=== PATIENT | female | born 1940 | race Caucasian/White ===

== ENCOUNTER 2021-08-08 13:48 | Day surgery (SDC) | payer MEDICARE, BC ==
[2021-08-04 15:36] LABS: BASOPHILS % (AUTO) 0.9 % (0-1); EOSINOPHILS # (AUTO) 0.1 X10'3 (0-0.9); EOSINOPHILS % (AUTO) 1.6 % (0-6); HEMATOCRIT 41.1 % (35.0-45.0); HEMOGLOBIN 13.5 g/dl (12.0-16.0); LYMPHOCYTES # (AUTO) 1.4 X10'3 (1.1-4.8); LYMPHOCYTES % (AUTO) 29.5 % (21-51); MEAN CORPUSCULAR HEMOGLOBIN 32.9 PG (27.0-31.0); MEAN CORPUSCULAR HGB CONC 32.9 g/dL (33.0-36.5); MEAN PLATELET VOLUME 8.7 FL (7.4-10.4); MONOCYTES # (AUTO) 0.4 X10'3 (0-0.9); MONOCYTES % (AUTO) 8.4 % (2-12); NEUTROPHILS # (AUTO) 2.8 X10'3 (1.8-7.7); NEUTROPHILS % (AUTO) 59.6 % (42-75); PLATELET COUNT 238 X10'3 (140-440); RED BLOOD COUNT 4.12 X10'6 (4.20-5.60); RED CELL DISTRIBUTION WIDTH 14.2 % (11.5-14.5); WHITE BLOOD COUNT 4.7 X10'3 (4.5-11.0)
[2021-08-04 15:43] LABS: ALBUMIN 3.3 G/DL (3.4-5.0); ANION GAP 7 (8-16); BLOOD UREA NITROGEN 16 MG/DL (7-18); BUN/CREATININE RATIO 20.8 (6.6-38.0); CALCIUM 8.7 MG/DL (8.5-10.1); CHLORIDE 105 MMOL/L (99-107); CREATININE 0.77 MG/DL (0.40-0.90); GLUCOSE 85 MG/DL (70-104); POTASSIUM 4.1 MMOL/L (3.5-5.1); SODIUM 140 MMOL/L (135-145); TOTAL CARBON DIOXIDE 27.6 MMOL/L (24-32); eGFR 72 ML/MIN
[2021-08-04 15:45] LABS: APTT 37 SECONDS (22-32)
[~2021-08-08] VITALS: Ht 154.9 cm; Wt 84.2 kg
[2021-08-08] VITALS (7 sets, daily range): BP systolic 112–149; BP diastolic 75–86
[~2021-08-08 13:48] MED LIST: ALEN70TA80 PO; CALC-97 PO; FLUO-167 PO; ROPIVAcaine 0.5% (5mg/ml) 30ml vial ONE; SOTA120T22 PO; WARF3TAB56 PO
[2021-08-08] MEDS ORDERED: LORazepam 0.5 MG tablet PO PRN (14:05)
[2021-08-08] MEDS ORDERED: normal saline 1,000 ML IV SCH (14:05)
[2021-08-08] MEDS ORDERED: diphenhydrAMINE 25mg capsule PO PRN (14:05)
[2021-08-08] MEDS ORDERED: ZOLE5INF7 IV (14:14)
[2021-08-08] MEDS ORDERED: FURO20TA4 PO (14:14)
[2021-08-08] MEDS ORDERED: ERGO50CA PO (14:15)
[2021-08-08] MEDS ORDERED: nitroGLYCERIN-Tridil 50MG/D5W 250 ML IV ONE (16:25)
[2021-08-08] MEDS ORDERED: verapamil 2.5 mg/ml inj IV ONE (16:25)
[2021-08-08] MEDS ORDERED: midazolam 1 mg/ML 2ml injection ONE (16:26)
[2021-08-08] MEDS ORDERED: fentaNYL/PF 50MCG/1 ML 2ML syringe ONE (16:26)
[2021-08-08] MEDS ORDERED: iohexol 350 MG/1 ML 200ml bottle ONE (16:26)
[2021-08-08] MEDS ORDERED: heparin 1,000unit/ml 10ml vial 10 ML ONE ×2 (16:34→17:14)
[2021-08-08] MEDS ORDERED: LIDOcaine 1% 30ml preserv. free vial ONE (16:34)
[2021-08-08 17:31] LABS: ISTAT HGB ART 12.2 g/dl (12.0-16.0); ISTAT Hct ART 36 %PCV (35-48); ISTAT O2 SATURATION ARTERIAL 97 % (95-98); ISTAT SOURCE ART
[2021-08-08] MEDS ORDERED: normal saline 1000ml 1,000 ML IV SCH (18:20)
[2021-08-08] MEDS ORDERED: HYDROcodone/acetaminophen 10/325mg tab PO PRN (18:20)
[2021-08-08] MEDS ORDERED: HYDROcodone/acetaminophen 5mg/325mg tablet PO PRN (18:20)
[2021-08-09 07:37] LABS: ISTAT Hct MIX 40 %PCV (35-48); ISTAT O2 SATURATION MIX VENOUS 63 % (60-80); ISTAT SOURCE VEN
== END 2021-08-08 19:54 | disposition home or self-care (01) ==
LOC: SSTAY O 13:48
PROVIDERS: ATTEND Internal Medicine Interventional Cardiology
DX: I08.2 Rheumatic disorders of both aortic and tricuspid valves (principal); I10 Essential (primary) hypertension; I48.91 Unspecified atrial fibrillation; E78.5 Hyperlipidemia, unspecified; I48.0 Paroxysmal atrial fibrillation; M19.90 Unspecified osteoarthritis, unspecified site; I27.20 Pulmonary hypertension, unspecified; I65.23 Occlusion and stenosis of bilateral carotid arteries; Z87.891 Personal history of nicotine dependence; Z95.0 Presence of cardiac pacemaker; Z79.899 Other long term (current) drug therapy
CPT/HCPCS: 36415; 80048; 82803; 85014; 85025; 85610; 85730; 93005; 93456; 99152; 99153; C1751; C1769; C1894; J1644; J2250; J3010; J3490; J7030; Q0163; A4620; A5120; J2795; Q9967

== ENCOUNTER 2021-09-16 10:00 | Outpatient (CLI) | payer MEDICARE, BC ==
[~2021-09-16 10:00] MED LIST changes: -ALEN70TA80 PO; +ERGO50CA PO; +FURO20TA4 PO; -ROPIVAcaine 0.5% (5mg/ml) 30ml vial ONE; +ZOLE5INF7 IV
[2021-09-16 10:31] LABS: BASOPHILS # (AUTO) 0.1 X10'3 (0-0.2); BASOPHILS % (AUTO) 1.1 % (0-1); EOSINOPHILS # (AUTO) 0.1 X10'3 (0-0.9); MONOCYTES # (AUTO) 0.4 X10'3 (0-0.9); NEUTROPHILS # (AUTO) 3.4 X10'3 (1.8-7.7); WHITE BLOOD COUNT 4.9 X10'3 (4.5-11.0)
[2021-09-16 10:33] LABS: EOSINOPHILS % (AUTO) 1.6 % (0-6); HEMOGLOBIN 13.9 g/dl (12.0-16.0); LYMPHOCYTES % (AUTO) 20.2 % (21-51); MEAN CORPUSCULAR HEMOGLOBIN 33.3 PG (27.0-31.0); MEAN CORPUSCULAR HGB CONC 33.1 g/dL (33.0-36.5); MEAN CORPUSCULAR VOLUME 100.7 FL (78-98); MEAN PLATELET VOLUME 8.3 FL (7.4-10.4); MONOCYTES % (AUTO) 8.8 % (2-12); NEUTROPHILS % (AUTO) 68.3 % (42-75); PLATELET COUNT 248 X10'3 (140-440); RED BLOOD COUNT 4.17 X10'6 (4.20-5.60)
[2021-09-16 10:40] LABS: APTT 41 SECONDS (22-32)
[2021-09-16 10:41] LABS: ALANINE AMINOTRANSFERASE 19 U/L (12-78); ALBUMIN/GLOBULIN RATIO 0.7 (1.1-1.5); ALKALINE PHOSPHATASE 102 IU/L (46-116); ANION GAP 8 (8-16); ASPARTATE AMINO TRANSFERASE 23 U/L (10-37); BILIRUBIN,TOTAL 0.6 MG/DL (0.1-1.0); BLOOD UREA NITROGEN 12 MG/DL (7-18); BUN/CREATININE RATIO 12.6 (6.6-38.0); CALCIUM 8.3 MG/DL (8.5-10.1); CHLORIDE 106 MMOL/L (99-107); CREATININE 0.95 MG/DL (0.40-0.90); GLUCOSE 126 MG/DL (70-104); POTASSIUM 4.1 MMOL/L (3.5-5.1); SODIUM 141 MMOL/L (135-145); TOTAL CARBON DIOXIDE 26.7 MMOL/L (24-32); TOTAL PROTEIN 7.6 G/DL (6.4-8.2); eGFR 56 ML/MIN
[2021-09-16] MEDS ORDERED: iohexol 350 MG/1 ML 200ml bottle ONE (10:50)
== END 2021-09-16 23:59 | disposition home or self-care (01) ==
LOC: RAD 10:00
PROVIDERS: ATTEND Internal Medicine Cardiovascular Disease
DX: Z01.818 Encounter for other preprocedural examination (principal); R94.2 Abnormal results of pulmonary function studies; J43.9 Emphysema, unspecified; I51.7 Cardiomegaly; Z95.0 Presence of cardiac pacemaker; Z90.49 Acquired absence of other specified parts of digestive tract; Z79.899 Other long term (current) drug therapy; Z87.891 Personal history of nicotine dependence
CPT/HCPCS: 36415; 71046; 71275; 74174; 80053; 85025; 85610; 85730; 94010; 94727; 94729; J3490; Q9967

== ENCOUNTER 2023-04-24 11:24 | Day surgery (SDC) | payer MEDICARE, BC ==
[2023-04-20 16:39] LABS: EOSINOPHILS # (AUTO) 0.1 X10'3 (0-0.9); MEAN CORPUSCULAR HEMOGLOBIN 34.7 PG (27.0-31.0)
[2023-04-20 16:41] LABS: BASOPHILS % (AUTO) 0.8 % (0-1); EOSINOPHILS % (AUTO) 2.3 % (0-6); HEMATOCRIT 41.2 % (35.0-45.0); HEMOGLOBIN 13.9 g/dl (12.0-16.0); LYMPHOCYTES # (AUTO) 0.9 X10'3 (1.1-4.8); LYMPHOCYTES % (AUTO) 17.3 % (21-51); MEAN CORPUSCULAR HGB CONC 33.7 g/dL (33.0-36.5); MEAN PLATELET VOLUME 8.5 FL (7.4-10.4); MONOCYTES # (AUTO) 0.5 X10'3 (0-0.9); MONOCYTES % (AUTO) 8.7 % (2-12); NEUTROPHILS # (AUTO) 3.8 X10'3 (1.8-7.7); NEUTROPHILS % (AUTO) 70.9 % (42-75); PLATELET COUNT 188 X10'3 (140-440); RED BLOOD COUNT 3.99 X10'6 (4.20-5.60); RED CELL DISTRIBUTION WIDTH 14.7 % (11.5-14.5); WHITE BLOOD COUNT 5.3 X10'3 (4.5-11.0)
[2023-04-20 16:47] LABS: APTT 36 SECONDS (22-32); INR 2.5 INR; PROTHROMBIN TIME 25.6 SECONDS (9.0-12.0)
[2023-04-20 16:49] LABS: ALBUMIN 3.2 G/DL (3.4-5.0); ANION GAP 8 (8-16); BLOOD UREA NITROGEN 12 MG/DL (7-18); BUN/CREATININE RATIO 12.9 (10.0-20.0); CALCIUM 9.1 MG/DL (8.5-10.1); CHLORIDE 104 MMOL/L (99-107); CREATININE 0.93 MG/DL (0.40-0.90); GLUCOSE 90 MG/DL (70-104); POTASSIUM 3.6 MMOL/L (3.5-5.1); SODIUM 140 MMOL/L (135-145); TOTAL CARBON DIOXIDE 27.6 MMOL/L (24-32); eGFR 58 ML/MIN
[~2023-04-24] VITALS: Ht 170.2 cm; Wt 83.9 kg
[2023-04-24] VITALS (12 sets, daily range): BP systolic 116–179; BP diastolic 69–129; PULSE 82–102; RESP 16; TEMP 98.1; O2SAT 92–99
[~2023-04-24 11:24] MED LIST changes: -ERGO50CA PO; +FURO-150 PO; -FURO20TA4 PO; +WARF4TAB69 PO
[2023-04-24] MEDS: normal saline 1000ml 1,000 ML IV SCH (12:00)
[2023-04-24] MEDS: MIDAZolam 1mg/ml 10ml vial IV ONE (12:45)
[2023-04-24] MEDS: fentaNYL/PF 50MCG/1 ML 2ML syringe IV ONE (12:48)
[2023-04-24] MEDS ORDERED: LEVO5TAB13 PO (13:07)
[2023-04-24] MEDS ORDERED: CYAN-34 PO (13:07)
[2023-04-24] MEDS ORDERED: LISI40TA13 PO (13:07)
[2023-04-24] MEDS ORDERED: BIOT5000 PO (13:07)
== END 2023-04-24 15:20 | disposition home or self-care (01) ==
LOC: SSTAY O 11:24
PROVIDERS: ATTEND Student in an Organized Health Care Education/Training Program
DX: I48.0 Paroxysmal atrial fibrillation (principal); I08.3 Combined rheumatic disorders of mitral, aortic and tricuspid valves; I65.29 Occlusion and stenosis of unspecified carotid artery; I10 Essential (primary) hypertension; E78.5 Hyperlipidemia, unspecified; M19.90 Unspecified osteoarthritis, unspecified site; I27.20 Pulmonary hypertension, unspecified; I49.5 Sick sinus syndrome; Z95.0 Presence of cardiac pacemaker; Z79.01 Long term (current) use of anticoagulants; Z79.899 Other long term (current) drug therapy; Z87.891 Personal history of nicotine dependence
CPT/HCPCS: 36415; 80048; 85025; 85610; 85730; 92960; J2250; J3010; J7030; A4620

== ENCOUNTER 2023-07-07 08:41 | Emergency (ER) | payer MEDICARE, BC ==
[~2023-07-07] VITALS: Ht 154.9 cm; Wt 78.0 kg
[~2023-07-07 08:41] MED LIST changes: +BIOT5000 PO; +CYAN-34 PO; +LEVO5TAB13 PO; +LISI40TA13 PO; -ZOLE5INF7 IV
[2023-07-07 08:56] VITALS: BP 153/63; PULSE 60; RESP 20; TEMP 97.2; O2SAT 95
== END 2023-07-07 11:35 | disposition home or self-care (01) ==
LOC: ER 08:41
DX: K13.79 Other lesions of oral mucosa (principal); I48.91 Unspecified atrial fibrillation; I25.10 Atherosclerotic heart disease of native coronary artery without angina pectoris; Z90.49 Acquired absence of other specified parts of digestive tract; Z95.0 Presence of cardiac pacemaker
CPT/HCPCS: 99282

== ENCOUNTER 2023-09-13 13:36 | Inpatient (IN) | payer MEDICARE, BC ==
[~2023-09-13] VITALS: Ht 165.1 cm; Wt 83.1 kg
[2023-09-13 14:15] LABS: BASOPHILS # (AUTO) 0.1 X10'3 (0-0.2); BASOPHILS % (AUTO) 1.1 % (0-1); EOSINOPHILS % (AUTO) 0.9 % (0-6); HEMATOCRIT 41.1 % (35.0-45.0); HEMOGLOBIN 13.5 g/dl (12.0-16.0); LYMPHOCYTES # (AUTO) 0.7 X10'3 (1.1-4.8); LYMPHOCYTES % (AUTO) 12.8 % (21-51); MEAN CORPUSCULAR HEMOGLOBIN 35.4 PG (27.0-31.0); MEAN CORPUSCULAR HGB CONC 32.7 g/dL (33.0-36.5); MEAN CORPUSCULAR VOLUME 108.3 FL (78-98); MONOCYTES # (AUTO) 0.6 X10'3 (0-0.9); MONOCYTES % (AUTO) 9.6 % (2-12); NEUTROPHILS # (AUTO) 4.3 X10'3 (1.8-7.7); NEUTROPHILS % (AUTO) 75.6 % (42-75); PLATELET COUNT 206 X10'3 (140-440); RED CELL DISTRIBUTION WIDTH 15.7 % (11.5-14.5); WHITE BLOOD COUNT 5.7 X10'3 (4.5-11.0)
[2023-09-13 14:25] LABS: ALANINE AMINOTRANSFERASE 26 U/L (12-78); ALBUMIN 3.1 G/DL (3.4-5.0); ALBUMIN/GLOBULIN RATIO 0.6 (1.1-1.5); ALKALINE PHOSPHATASE 119 IU/L (46-116); ANION GAP 11 (8-16); BILIRUBIN,TOTAL 1.7 MG/DL (0.1-1.0); BLOOD UREA NITROGEN 18 MG/DL (7-18); BUN/CREATININE RATIO 14.1 (10.0-20.0); CALCIUM 9.1 MG/DL (8.5-10.1); CHLORIDE 103 MMOL/L (99-107); CREATININE 1.28 MG/DL (0.40-0.90); GLUCOSE 96 MG/DL (70-104); SODIUM 140 MMOL/L (135-145); TOTAL CARBON DIOXIDE 26.1 MMOL/L (24-32); eCRCL 25 ML/MIN; eGFR 40 ML/MIN
[2023-09-13 14:31] LABS: PRO BRAIN NATRIURETIC PEPTIDE 11009 PG/ML (0-450)
[2023-09-13 14:32] LABS: ASPARTATE AMINO TRANSFERASE 34 U/L (10-37); POTASSIUM 3.9 MMOL/L (3.5-5.1)
[2023-09-13] MEDS ORDERED: LISI40TA13 PO (15:41)
[2023-09-13] MEDS ORDERED: HYDR25TA5 PO (15:41)
[2023-09-13] MEDS ORDERED: METO200T3 PO (15:41)
[2023-09-13] MEDS: metoprolol tartrate 50mg tablet PO STA (15:56)
[2023-09-13] MEDS: HYDROchlorothiazide 25mg tablet PO STA (15:56)
[2023-09-13] MEDS: lisinopril 20mg tablet PO STA (15:57)
[2023-09-13] MEDS: metoprolol tartrate 1mg/ml inj IV STA (15:57)
[2023-09-13] MEDS: hydrALAZINE 20mg/ml inj. IV SCH (19:32)
[2023-09-13] MEDS: metoprolol tartrate 50mg tablet PO SCH (19:32)
[2023-09-13] MEDS: digoxin 250mcg/ml 2ml ampule IV ONE (19:33)
[2023-09-13] MEDS ORDERED: acetaminophen 650mg rectal suppository RC PRN (19:50)
[2023-09-13] MEDS ORDERED: morphine 2 MG/ML inj. syringe IV PRN ×2 (19:50)
[2023-09-13] MEDS ORDERED: magnesium 2GM in 50ml NS 50 ML IV PRN (19:50)
[2023-09-13] MEDS ORDERED: ondansetron/PF 4mg/2ml inj IV PRN (19:50)
[2023-09-13] MEDS ORDERED: potassium Cl 40MEQ/1/2NS 520ml 520 ML IV PRN (19:50)
[2023-09-13] MEDS ORDERED: magnesium 4gm in 100ml NS 100 ML IV PRN (19:50)
[2023-09-13] MEDS ORDERED: ondansetron 4mg rapidly disintigrating tab PO PRN (19:50)
[2023-09-13] MEDS ORDERED: bisacodyl 10mg suppository rectal RC PRN (19:50)
[2023-09-13] MEDS ORDERED: magnesium hydroxide 30ml (MOM) UD suspension PO PRN (19:50)
[2023-09-13] MEDS ORDERED: acetaminophen 325mg tablet PO PRN ×2 (19:50)
[2023-09-13] MEDS ORDERED: magnesium Cl slow-release 64mg tablet PO PRN (19:50)
[2023-09-13] MEDS ORDERED: potassium Cl 20 mEq SR tablet PO PRN ×2 (19:50)
[2023-09-13] MEDS ORDERED: mag hydrox/Alum hydrox/simeth 30ml oral suspension PO PRN (19:50)
[2023-09-13] MEDS ORDERED: HYDROcodone/acetaminophen 5mg/325mg tablet PO PRN (19:50)
[2023-09-13] MEDS: docusate sod 100mg capsule PO SCH (20:00)
[2023-09-13] MEDS: K and/or MAG REPLACEMENT MC SCH (20:00)
[2023-09-13 20:42] LABS: MAGNESIUM 1.8 MG/DL (1.5-2.4); PHOSPHORUS 3.6 MG/DL (2.3-4.5); POTASSIUM 3.3 MMOL/L (3.5-5.1)
[2023-09-13 20:43] LABS: APTT 44 SECONDS (22-32); HEMOGLOBIN A1C 5.3 % (4.5-6.2); PROTHROMBIN TIME 54.2 SECONDS (9.0-12.0)
[2023-09-13 21:01] LABS: INR 5.9 INR
[2023-09-13 21:51] LABS: BILIRUBIN,URINE NEGATIVE (Neg); CLARITY,URINE CLOUDY (Clear); COLOR,URINE YELLOW (Yellow); GLUCOSE, URINE NEGATIVE (Neg); KETONES,URINE NEGATIVE (Neg); LEUKOCYTE ESTERASE ,URINE LARGE (Neg); NITRITES, URINE NEGATIVE (Neg); OCCULT BLOOD,URINE TRACE-INTACT (Neg); PROTEIN,URINE NEGATIVE (Neg); UROBILINOGEN,URINE 0.2 E.U/dL (0.2-1.0)
[2023-09-13] MEDS: normal saline 1000ml 1,000 ML IV SCH (21:53)
[2023-09-13 21:57] LABS: UA COLLECTION TYPE NON-SPECIFIED
[2023-09-13 21:59] LABS: SQUAMOUS EPITHELIAL CELL,UR MANY /LPF (FEW)
[2023-09-13 22:00] LABS: TRANSITIONAL EPI CELLS,URINE FEW /HPF
[2023-09-13 22:02] LABS: BACTERIA,URINE 1+ /HPF (Neg); WBC,URINE TNTC /HPF (0-4)
[2023-09-13 23:00] VITALS: BP 158/98; PULSE 125; RESP 20; TEMP 98.2; O2SAT 94
[2023-09-14] VITALS (8 sets, daily range): BP systolic 118–165; BP diastolic 60–98; PULSE 71–117; RESP 12–20; TEMP 97–98; O2SAT 96–98
[2023-09-14] MEDS: digoxin 250mcg/ml 2ml ampule IV ONE ×2 (04:40→10:59)
[2023-09-14 07:25] LABS: BASOPHILS # (AUTO) 0.1 X10'3 (0-0.2); EOSINOPHILS # (AUTO) 0.1 X10'3 (0-0.9); EOSINOPHILS % (AUTO) 0.9 % (0-6); HEMATOCRIT 37.6 % (35.0-45.0); HEMOGLOBIN 12.6 g/dl (12.0-16.0); LYMPHOCYTES # (AUTO) 0.7 X10'3 (1.1-4.8); LYMPHOCYTES % (AUTO) 13.2 % (21-51); MEAN CORPUSCULAR HEMOGLOBIN 35.8 PG (27.0-31.0); MEAN CORPUSCULAR HGB CONC 33.6 g/dL (33.0-36.5); MEAN CORPUSCULAR VOLUME 106.5 FL (78-98); MEAN PLATELET VOLUME 8.5 FL (7.4-10.4); MONOCYTES # (AUTO) 0.5 X10'3 (0-0.9); MONOCYTES % (AUTO) 8.5 % (2-12); NEUTROPHILS # (AUTO) 4.3 X10'3 (1.8-7.7); NEUTROPHILS % (AUTO) 76.4 % (42-75); PLATELET COUNT 174 X10'3 (140-440); RED BLOOD COUNT 3.53 X10'6 (4.20-5.60); RED CELL DISTRIBUTION WIDTH 15.1 % (11.5-14.5); WHITE BLOOD COUNT 5.7 X10'3 (4.5-11.0)
[2023-09-14 07:53] LABS: ALANINE AMINOTRANSFERASE 22 U/L (12-78); ALBUMIN 2.9 G/DL (3.4-5.0); ALBUMIN/GLOBULIN RATIO 0.7 (1.1-1.5); ALKALINE PHOSPHATASE 106 IU/L (46-116); ANION GAP 10 (8-16); ASPARTATE AMINO TRANSFERASE 23 U/L (10-37); BILIRUBIN,TOTAL 1.5 MG/DL (0.1-1.0); BLOOD UREA NITROGEN 19 MG/DL (7-18); BUN/CREATININE RATIO 17.4 (10.0-20.0); CALCIUM 8.9 MG/DL (8.5-10.1); CHLORIDE 104 MMOL/L (99-107); CHOL/HDL RATIO 2.2 (0.00-4.99); CHOLESTEROL 82 MG/DL (0-200); CREATININE 1.09 MG/DL (0.40-0.90); GLUCOSE 94 MG/DL (70-104); HDL CHOLESTEROL 38 MG/DL (35-60); LDL CHOLESTEROL 39 MG/DL (50-100); MAGNESIUM 1.8 MG/DL (1.5-2.4); PHOSPHORUS 3.3 MG/DL (2.3-4.5); POTASSIUM 3.5 MMOL/L (3.5-5.1); SODIUM 139 MMOL/L (135-145); TOTAL PROTEIN 7.2 G/DL (6.4-8.2); TRIGLYCERIDES 66 MG/DL (20-135); eCRCL 29 ML/MIN; eGFR 48 ML/MIN
[2023-09-14 07:57] LABS: PROTHROMBIN TIME 46.1 SECONDS (9.0-12.0)
[2023-09-14 08:05] LABS: INR 4.8 INR
[2023-09-14] MEDS: HYDROcodone/acetaminophen 10/325mg tab PO PRN (08:46)
[2023-09-14] MEDS: FLUoxetine 20mg capsule PO SCH (08:47)
[2023-09-14] MEDS: metoprolol succinate 25mg (24-HOUR) SR. Tablet PO SCH (08:47)
[2023-09-14] MEDS: HYDROchlorothiazide 25mg tablet PO SCH (08:50)
[2023-09-14] MEDS: furosemide 20MG tablet PO SCH (08:50)
[2023-09-14] MEDS: calcium carbonate/vitamin D3 tablet PO SCH (08:50)
[2023-09-14] MEDS: loratadine 10mg tablet PO SCH (08:50)
[2023-09-14] MEDS: lisinopril 10 MG tablet PO SCH (08:52)
[2023-09-14] MEDS ORDERED: warfarin 3mg tablet PO SCH (21:00)
[2023-09-14] MEDS: hydrOXYzine 25 MG tablet PO PRN (21:37)
[2023-09-15 02:00] VITALS: BP 125/87; PULSE 78; RESP 20; TEMP 98.3; O2SAT 100
[2023-09-15 06:30] VITALS: BP 141/67; PULSE 78; RESP 16; TEMP 97.3; O2SAT 94
[2023-09-15 07:10] LABS: BASOPHILS % (AUTO) 0.7 % (0-1); EOSINOPHILS # (AUTO) 0.1 X10'3 (0-0.9); EOSINOPHILS % (AUTO) 3.3 % (0-6); HEMATOCRIT 35.5 % (35.0-45.0); HEMOGLOBIN 11.9 g/dl (12.0-16.0); LYMPHOCYTES # (AUTO) 0.8 X10'3 (1.1-4.8); LYMPHOCYTES % (AUTO) 18.1 % (21-51); MEAN CORPUSCULAR HEMOGLOBIN 35.9 PG (27.0-31.0); MEAN CORPUSCULAR HGB CONC 33.4 g/dL (33.0-36.5); MEAN CORPUSCULAR VOLUME 107.3 FL (78-98); MEAN PLATELET VOLUME 8.7 FL (7.4-10.4); MONOCYTES # (AUTO) 0.4 X10'3 (0-0.9); MONOCYTES % (AUTO) 8.9 % (2-12); NEUTROPHILS # (AUTO) 3.2 X10'3 (1.8-7.7); PLATELET COUNT 173 X10'3 (140-440); RED BLOOD COUNT 3.31 X10'6 (4.20-5.60); WHITE BLOOD COUNT 4.6 X10'3 (4.5-11.0)
[2023-09-15 07:19] LABS: PROTHROMBIN TIME 34.4 SECONDS (9.0-12.0)
[2023-09-15 07:26] LABS: ALANINE AMINOTRANSFERASE 20 U/L (12-78); ALBUMIN 2.6 G/DL (3.4-5.0); ALBUMIN/GLOBULIN RATIO 0.6 (1.1-1.5); ALKALINE PHOSPHATASE 95 IU/L (46-116); ANION GAP 11 (8-16); ASPARTATE AMINO TRANSFERASE 25 U/L (10-37); BILIRUBIN,TOTAL 1.3 MG/DL (0.1-1.0); BLOOD UREA NITROGEN 22 MG/DL (7-18); BUN/CREATININE RATIO 20.2 (10.0-20.0); CALCIUM 9.2 MG/DL (8.5-10.1); CHLORIDE 103 MMOL/L (99-107); CREATININE 1.09 MG/DL (0.40-0.90); GLUCOSE 85 MG/DL (70-104); MAGNESIUM 1.9 MG/DL (1.5-2.4); PHOSPHORUS 4.1 MG/DL (2.3-4.5); POTASSIUM 3.7 MMOL/L (3.5-5.1); SODIUM 139 MMOL/L (135-145); TOTAL CARBON DIOXIDE 25.4 MMOL/L (24-32); TOTAL PROTEIN 6.7 G/DL (6.4-8.2); eCRCL 35 ML/MIN; eGFR 48 ML/MIN
[2023-09-15 07:42] LABS: INR 3.5 INR
[2023-09-15 08:00] VITALS: RESP 16; O2SAT 94
[2023-09-15 09:55] VITALS: BP 132/83; PULSE 76
[2023-09-15 11:00] VITALS: BP 100/58; PULSE 79; RESP 18; TEMP 97.2; O2SAT 95
[2023-09-15 11:08] VITALS: BP_SYST 141; PULSE 94
[2023-09-15] MEDS ORDERED: LISI40TA13 PO (11:30)
[2023-09-15] MEDS ORDERED: warfarin 4mg tablet PO SCH (21:00)
== END 2023-09-15 16:46 | disposition home or self-care (01) | DRG 308 ==
LOC: ER 13:36 → ED HOLD 19:49 → UNDOADMIN 19:49 → ED HOLD 19:59 → EDBEDREQ 22:06 → ED HOLD 23:00 → PCU 3S 23:00
PROVIDERS: ADMIT Internal Medicine Pulmonary Disease; ATTEND Internal Medicine
DX: I48.91 Unspecified atrial fibrillation (principal); N17.0 Acute kidney failure with tubular necrosis; I16.1 Hypertensive emergency; R74.01 Elevation of levels of liver transaminase levels; F32.A Depression, unspecified; G47.33 Obstructive sleep apnea (adult) (pediatric); I10 Essential (primary) hypertension; Z79.899 Other long term (current) drug therapy; Z90.49 Acquired absence of other specified parts of digestive tract; Z95.0 Presence of cardiac pacemaker
CPT/HCPCS: 36415; 71045; 80053; 80061; 81001; 83036; 83735; 83880; 84100; 84132; 84484; 85025; 85610; 85730; 87081; 93005; 97161; 97530; 99285; G0378; J0360; J1160; J3490; J7030; Q0177

== ENCOUNTER 2023-10-08 15:40 | Emergency (ER) | payer MEDICARE, BC ==
[~2023-10-08] VITALS: Ht 154.9 cm; Wt 82.8 kg
[~2023-10-08 15:40] MED LIST changes: -CYAN-34 PO; +METO200T3 PO; -SOTA120T22 PO
[2023-10-08 16:05] VITALS: TEMP 97.5
[2023-10-08 16:40] VITALS: BP 147/90; PULSE 60; RESP 18; O2SAT 97
[2023-10-08 17:00] LABS: EOSINOPHILS # (AUTO) 0.1 X10'3 (0-0.9); HEMOGLOBIN 10.8 g/dl (12.0-16.0)
[2023-10-08 17:02] LABS: BASOPHILS % (AUTO) 0.9 % (0-1); EOSINOPHILS % (AUTO) 1.1 % (0-6); HEMATOCRIT 32.8 % (35.0-45.0); LYMPHOCYTES # (AUTO) 0.7 X10'3 (1.1-4.8); LYMPHOCYTES % (AUTO) 12.9 % (21-51); MEAN CORPUSCULAR HEMOGLOBIN 35.2 PG (27.0-31.0); MEAN CORPUSCULAR HGB CONC 32.9 g/dL (33.0-36.5); MEAN CORPUSCULAR VOLUME 107.2 FL (78-98); MEAN PLATELET VOLUME 8.2 FL (7.4-10.4); MONOCYTES # (AUTO) 0.5 X10'3 (0-0.9); MONOCYTES % (AUTO) 9.3 % (2-12); NEUTROPHILS # (AUTO) 4.3 X10'3 (1.8-7.7); NEUTROPHILS % (AUTO) 75.8 % (42-75); PLATELET COUNT 180 X10'3 (140-440); RED BLOOD COUNT 3.06 X10'6 (4.20-5.60); RED CELL DISTRIBUTION WIDTH 14.5 % (11.5-14.5); WHITE BLOOD COUNT 5.6 X10'3 (4.5-11.0)
[2023-10-08 17:03] LABS: ALBUMIN 2.9 G/DL (3.4-5.0); ANION GAP 9 (8-16); BLOOD UREA NITROGEN 21 MG/DL (7-18); BUN/CREATININE RATIO 13.9 (10.0-20.0); CALCIUM 8.3 MG/DL (8.5-10.1); CHLORIDE 105 MMOL/L (99-107); CREATININE 1.51 MG/DL (0.40-0.90); GLUCOSE 102 MG/DL (70-104); POTASSIUM 3.9 MMOL/L (3.5-5.1); SODIUM 141 MMOL/L (135-145); TOTAL CARBON DIOXIDE 27.2 MMOL/L (24-32); eCRCL 21 ML/MIN; eGFR 33 ML/MIN
[2023-10-08 17:12] LABS: APTT 45 SECONDS (22-32); PROTHROMBIN TIME 41.3 SECONDS (9.0-12.0)
[2023-10-08 17:28] LABS: INR 4.3 INR
== END 2023-10-08 18:50 | disposition home or self-care (01) ==
LOC: ER 15:41
DX: S60.011A Contusion of right thumb without damage to nail, initial encounter (principal); S80.02XA Contusion of left knee, initial encounter; S00.83XA Contusion of other part of head, initial encounter; I48.91 Unspecified atrial fibrillation; I25.10 Atherosclerotic heart disease of native coronary artery without angina pectoris; M54.2 Cervicalgia; Z79.899 Other long term (current) drug therapy; Z90.49 Acquired absence of other specified parts of digestive tract; W01.0XXA Fall on same level from slipping, tripping and stumbling without subsequent striking against object, initial encounter; Y93.89 Activity, other specified; Y92.89 Other specified places as the place of occurrence of the external cause; Y99.8 Other external cause status
CPT/HCPCS: 36415; 70450; 72125; 73130; 73564; 80048; 84484; 85025; 85610; 85730; 99284; A6258

== ENCOUNTER 2024-12-19 16:50 | Inpatient (IN) | payer MEDICARE, BC ==
[~2024-12-19] VITALS: Ht 157.5 cm; Wt 63.3 kg
[~2024-12-19 16:50] MED LIST changes: -LISI40TA13 PO; +LISI40TA20 PO
[2024-12-19] MEDS: normal saline 1000ml 1,000 ML IV ONE (17:19)
[2024-12-19 17:22] LABS: MEAN PLATELET VOLUME 9.2 FL (7.4-10.4); RED CELL DISTRIBUTION WIDTH 14.6 % (11.5-14.5)
[2024-12-19 17:44] LABS: CREATININE 3.00 MG/DL (0.40-0.90); TOTAL CARBON DIOXIDE 19.8 MMOL/L (24-32); eCRCL 11 ML/MIN; eGFR 15 ML/MIN
--- NOTE | 2024-12-19 20:17 | Physician Documentation ---
History of Present Illness ~ Chief Complaint: Diarrhea Stated Complaint: DEHYDRATION/KIDNEY PAIN Time Seen by MD: 20:13 OK to notify your PCP?: Yes Primary Medical Doctor: Dr. Chin [facility] Source: patient, RN/, RN notes reviewed, old records Mode of Arrival: Dropped Off Exam Limitations: no limitations HPI This patient was sent in for abnormal labs. She has been sick for about two weeks with intractable diarrhea she believes it started after having some bad food. She had fevers early on but those seemed to have resolved. She is weak fatigued aching. She has not been on any recent antibiotics. Her stools do not smell excessively bad. She went to see her primary doctor and was told to come to the hospital for abnormal laboratory but was uncertain as to what those were. She was scheduled to have a stool culture as well. Patient is now here for evaluation she did vomit initially but that part seems to have resolved. She is feeling a bit better and can eat now. Her family members are at her bedside she has no other complaints at this time. Medication Reconciliation Allergies: Coded Allergies: No Known Drug Allergies (Verified Allergy, Unknown, 12/19/24) Scheduled Amiodarone HCl* (Amiodarone HCl*), 1 TAB PO DAILY, (Reported) Biotin (Biotin), 1 TAB PO DAILY, (Reported) Calcium Carbonate/Vitamin D3 (Calcium With Vit D Tablet), 1 EACH PO DAILY, (Reported) Fluoxetine HCl (Fluoxetine HCl), 1 CAP PO DAILY, (Reported) Furosemide (Lasix), 1 TAB PO DAILY, (Reported) Hydralazine Hcl* (Apresoline*), 1 TAB PO BID, (Reported) Levocetirizine Dihydrochloride (Levocetirizine Dihydrochloride), 40 MG PO DAILY, (Reported) Lisinopril* (Lisinopril*), 1 TAB PO DAILY Metoprolol Succinate (Metoprolol Succinate), 1 TAB PO DAILY, (Reported) Montelukast Sodium (Montelukast Sodium), 1 TAB PO DAILY, (Reported) Warfarin Sodium (Warfarin Sodium), 1 TAB PO MTTF, (Reported) Warfarin Sodium (Warfarin Sodium), 1 TAB PO SS, (Reported) Warfarin Sodium (Warfarin Sodium), 0.5 TAB PO Wednesdsy, (Reported) Discontinued Medications Calcium Carbonate/Vitamin D3 (Calcium 500 + D Tablet), 1 TAB PO BID, (Reported) Discontinued Reason: Other Metoprolol Succinate (Toprol Xl), 1 TAB PO DAILY Discontinued Reason: Other Warfarin Sodium (Warfarin Sodium), 1 TABLET PO MWTHFSATS, (Reported) Discontinued Reason: Other Warfarin Sodium (Warfarin Sodium), 1 TAB PO T, (Reported) Discontinued Reason: Other Past Medical History Past Medical History: Atrial Fibrillation, Coronary Artery Disease, Hypertension, Extremity Fracture Past Surgical History: cholecystectomy, colectomy, orthopedic surgeries, pacemaker, other Patient History: (CAD) Coronary arteriosclerosis MOTHER, , Age: 80, Cause: (CVA) Cerebrovascular accident FAMILY/OTHER No Family History of: (CABG) Coronary artery bypass grafting (CHF) Congestive heart failure (COPD) Chronic obstructive lung disease (Cancer) Malignant carcinoid tumor (DM Type 2) Diabetes mellitus type 2 (DM Type1) Diabetes mellitus type 1 ([place]) Myocardial infarction (PVD) Peripheral vascular disease (TIA) Transient ischemic attack Alzheimer's disease Aortic aneurysm Asthma Cardiac arrest Hypercholesterolemia Smoking Status: Current every day smoker Alcohol Use: Occasionally Drug Use: none Lives with: Alone Lives In: Home Occupation: retired Review of Systems All Other Systems at this time: Reviewed and Negative Physical Exam Vital Signs: RN Vital Signs have been reviewed: Yes, Temperature: 97.0, Source: Oral, Heart Rate: 60, Respiratory Rate: 14, BP: 107/43, Pulse Oximetry: 98, Weight: 63.300 Oxygen Flow Rate: 0 Physical Exam General: The patient is well developed, well nourished, nontoxic appearing and is in no acute distress. Skin: [place], warm and dry with no rashes. HEENT: Head was normocephalic and atraumatic. Eyes - pupils equal, round, reactive to light and accommodation. Extraocular movements were intact. Conjunctivae were nonicteric. The mouth and oropharynx were clear with moist mucous membranes. There were no pharyngeal exudates or erythema. Neck: Supple and nontender. There was no jugular venous distention, lymphadenopathy, thyromegaly or masses. Chest: Clear to auscultation bilaterally without wheezes, rales or rhonchi. No accessory muscle use. No dullness to percussion. Heart: Rate regular and rhythmic. S1, S2. No murmurs. Palpation of the chest wall was normal. No rubs or thrills. Abdomen: Hyperactive bowel sounds. Otherwise abdomen is soft, nontender and nondistended. No guarding or rebound. No hepatosplenomegaly or palpable masses. Extremities: No cyanosis, clubbing or edema. The patient moves all extremities. Pulses were equal and symmetric. Neurologic: Motor and sensation grossly intact. A & O x4. Psychologic: The patient was oriented to person, place and time. Progress Progress Note 2122: Paged hospitalist 2132: Case discussed with hospitalist who agrees to evaluate patient for admission. Results/Orders Reviewed/noted all lab results: Yes Results/Orders Orders - MAXI MORA MD Culture Blood (12/19/24 21:08) Cult Stool (Enteric Pathogens) (12/19/24 21:08) Wrights Stain For Stool Wbcs (12/19/24 21:08) C Diff Toxin (12/19/24 21:08) Ct Abdomen Pelvis (12/19/24:25) Page Hospitalist (12/19/24 21:23) Fill Out Med Reconciliation (12/19/24 21:23) Completed Orders - MAXI MORA MD Normal Saline 1000ml (0.9% Sodium Chlori (12/19/24 20:15) Procalcitonin (12/19/24 21:08) Lacticsepsis (12/19/24 21:08) Metronidazole-Flagyl 500mg/Ns (Flagyl 50 (12/20/24 00:00) Metronidazole-Flagyl 500mg/Ns (Flagyl 50 (12/19/24 21:08) Ct Abdomen Pelvis (12/19/24 21:25) Vital Signs 12/19/24 12/19/24 12/19/24 12/19/24 16:55 17:21 17:27 18:44 Temp 97.0 97.0 Pulse 60 59 60 Resp 18 16 18 14 B/P (MAP) 88/41 104/51 (68) 107/43 (64) Pulse Ox 98 98 98 O2 Flow Rate 0 0 12/19/24 20:38 Pulse 60 Resp 16 B/P (MAP) 107/45 (65) Pulse Ox 97 Laboratory Tests Test 12/19/24 17:14 12/19/24 21:21 White Blood Count 6.3 Red Blood Count 3.99 L Hemoglobin 13.8 Hematocrit 40.7 Mean Corpuscular Volume 101.9 H Mean Corpuscular Hemoglobin 34.5 H Mean Corpuscular Hemoglobin Concent 33.8 Red Cell Distribution Width 14.6 H Platelet Count 199 Mean Platelet Volume 9.2 Neutrophils (%) (Auto) 71.5 Lymphocytes (%) (Auto) 12.3 L Monocytes (%) (Auto) 8.6 Eosinophils (%) (Auto) 6.6 H Basophils (%) (Auto) 1.0 Neutrophils # (Auto) 4.5 Lymphocytes # (Auto) 0.8 L Monocytes # (Auto) 0.5 Eosinophils # (Auto) 0.4 Basophils # (Auto) 0.1 CBC Comment Sodium Level 141 Potassium Level 3.6 Chloride Level 111 H Carbon Dioxide Level 19.8 L Anion Gap 10 Blood Urea Nitrogen 62 H Creatinine 3.00 H Estimated GFR/1.73 m2 15 BUN/Creatinine Ratio 20.7 H Glucose Level 101 Calcium Level 9.0 Total Bilirubin 0.3 Aspartate Amino Transf (AST/SGOT) 18 Alanine Aminotransferase (ALT/SGPT) 13 Alkaline Phosphatase 99 Total Protein 8.0 Albumin 3.3 L Globulin 4.7 H Albumin/Globulin Ratio 0.7 L Lipase 25 Procalcitonin < 0.05 Chemistry Comments Lactic Acid Level 0.3 L Re-Evaluation Re-Evaluation : Re-Evaluation: Improved Progress Patient was seen and examined. Patient was given reassurance. Patient has been having severe amounts of diarrhea was even sicker prior with some episodes of vomiting but is now trying to take some oral fluids doing a little bit better but has profound weakness fatigue. She thinks it is started with possible Lipitor or some bad food a week ago. Patient's laboratory work shows a WBCs 6.3 with a hemoglobin of 13 and 40 most likely hemoconcentrated MCV is 101.9 patient does not have a history of drinking. Normal platelets. Patient's coagulation INR it was excessively elevated at 7.1 chemistry has a BUN of 62 and a creatinine of 3.0 was acute renal failure secondary to dehydration. LFTs within normal limits. Patient was then hydrated. Admitted to the hospitalist service for further workup and care. Cat scan was then ordered which was consistent with a enterocolitis but no bowel obstruction. Because the possibility of infectious diarrhea patient then received Flagyl. There was also some concerns for possible sepsis initial blood pressure was 88/41 but this is most likely due to renal failure dehydration. As the patient was hydrated blood pressure improved and was no longer hypotensive. Continuous cardiac care unit nurse interpretation showed normal sinus rhythm heart rate 60s, no ectopy, normal, my interpretation. Pulse oximetry monitor interpretation shows normal oxygenation at 98% room air, normal, my interpretation. EKG/XRAY/CT/US/VASC/MRI Chest X-Ray : Interpreted By: both Additional Comments [address] [address] DIAGNOSTIC RADIOLOGY Patient: LADARIUS MONTES Medical Record: [id number] [facility] : 1940, Age: 84 Sex: Female Location: ED HOLD Patient Status: ADM IN Service Date/Time: 12/19/24/ Ordering Physician: AKIL CELAYA Exam: CHEST,SINGLE VIEW CHEST RADIOGRAPH Indication: valvular heart disease Technique: 1 view Comparison: DI CHEST,SINGLE VIEW on DOS: 09/13/23, CHEST,SINGLE VIEW on DOS: 10/28/21 FINDINGS: Patient is rotated. Lines and Tubes: Unchanged left implanted cardiac device positioning. Lungs/Pleura: Similar diffuse bilateral interstitial edema. No focal consolidation, pleural effusion or pneumothorax. Cardiomediastinum: Unchanged, mildly enlarged heart size. Aortic valve replacement. Other: No acute osseous abnormality. IMPRESSION: 1. No acute cardiopulmonary abnormality or significant change from prior exam.. Electronically Signed by:CAT TORRES MD Date & Time: 12/19/242300 Dictated by: CAT TORRES MD Dictation date and time: 12/19/242300 Primary Care Provider: NO PRIMARY CARE PROVIDER cc: AKIL CELAYA, RES ~ EDMD Dr. Mora reviewed above imaging and agrees with interpretation. CT : Interpreted By: both CT: abdomen/pelvis With Contrast?: No Impression [facility] [address] , [place], [place] - [address] CAT SCAN Patient: LADARIUS MONTES Medical Record: [id number] [facility] : 1940, Age: 84 Sex: Female Location: ER Patient Status: [facility] ER Service Date/Time: 12/19/242124 Ordering Physician: MAXI MORA MD Exam: CT ABDOMEN PELVIS Exam: CT CT ABDOMEN PELVIS History: ABD PAIN Comparison Study: CT ABDOMEN PELVIS on DOS: 09/11/19 Technique: Multidetector spiral CT of the abdomen was performed from lung bases to pubic symphysis. Imaging was performed without IV contrast. Axial, coronal an d sagittal multiplanar reformats were obtained from the axial data set by the technologist. Radiation Dose : 1. Abdomen/Pelvis: CTDIvol 20 mGy, DLP 954 mGy*cm. Findings: Evaluation of solid organs is limited due to lack of intravenous contrast use. Lower Chest: Diffuse interstitial opacities with ground-glass attenuation and and centrilobular emphysema. Partially imaged cardiac leads with normal heart size. Liver: Multiple cystic appearing lesions without suspicious features. Gallbladder and Biliary Tree: Cholecystectomy change. Pancreas: Moderate atrophy. Spleen: Unremarkable. Adrenal Glands: Unremarkable. Kidneys/Ureters: No urinary stone or obstruction. Bladder: Distended without evident wall thickening or filling defect. Pelvic Organs: Unremarkable Bowel: No evidence of wall thickening or obstruction. Gas and fluid contents within a majority of mid to distal small bowel and proximal and mid large bowel loops with multiple short air-fluid levels. No evidence of appendicitis. Rectosigmoid anastomotic sutures without evident complication. Vasculature: Moderate atherosclerosis. Lymphadenopathy: No obvious adenopathy. Peritoneum: No ascites, free air, or fluid collection. Abdominal Wall: Ventral postsurgical change. Infraumbilical and right lower quadrant paramidline hernias contains uncomplicated small bowel loops. Musculoskeletal: No acute findings. Mild degenerative changes. IMPRESSION: 1. CT appearance of small and large bowel loops can be seen in the setting of enterocolitis. 2. No other acute abdominopelvic abnormality. 3. Small bowel containing infraumbilical hernias without evidence of complication. 4. Pulmonary emphysema with evidence of small airways disease. 5. Additional chronic and incidental findings above. Radiation optimization: All CT scans at this facility use at least one of these dose optimization techniques: automated exposure control mA and/or kV adjustment per patient size (includes targeted exams where dose is matched to clinical indication) or iterative reconstruction. Electronically Signed by:CAT TORRES MD Date & Time: 12/19/242145 Dictated by: CAT TORRES MD Dictation date and time: 12/19/242145 Primary Care Provider: NO PRIMARY CARE PROVIDER cc: MAXI MORA MD ~ EDMD Dr. Mora reviewed above imaging and agrees with interpretation. Medical Decision Making Diff Dx N/V/D:Considerations: Include: Bowel obstruction, Dehydration, DKA, Diarrhea - bacterial, Diarrhea - parasitic, Diarrhea - viral, Diverticulitis, Diverticulosis, Electrolyte imbalance, Food poisoning, Gastroenteritis, Hypovolemia, Hypotension, Inflammatory BD, Renal failure, Urinary obstruction, UTI, Other Departure Time of Disposition: 21:23 Disposition: 09 ADMITTED INPATIENT Admitted to Inpatient Unit: yes, to hospitalist Admission Level of Care: Critcal Care Impression: Primary Impression: Acute renal failure Qualified Codes: N17.9 - Acute kidney failure, unspecified Additional Impressions: Intractable diarrhea Dehydration Hypotension due to hypovolemia Condition: Guarded Referrals: NO PRIMARY CARE PROVIDER (PCP) Critical Care Note Total Time (mins): 30 Critical Care Note The very real possibility of a deterioration of this patient's condition required the highest level of my preparedness for sudden, emergent intervention. I provided critical care services, which included medication orders, frequent reevaluations of the patient's condition and response to treatment, ordering and reviewing test results, and discussing the case with various consultants. Excludes time spent performing separately billable procedures. The critical care time associated with the care of the patient was. 30 minutes Signature Scribe Signature: Scribed for Maxi Mora MD by Lisette Merritt. 12/19/24 21:32 Attestation: The note accurately reflects work and decisions made by me.Maxi Mora MD 12/19/24 20:17 MAXI MORA MD Dec 19, 2024 20:17
[2024-12-19] MEDS: normal saline 1000ML IV soln IVB ONE (20:29)
[2024-12-19] MEDS ORDERED: HYDR25TA90 PO (21:31)
[2024-12-19] MEDS ORDERED: METO200T37 PO (21:31)
[2024-12-19] MEDS ORDERED: AMIO200T72 PO (21:31)
[2024-12-19] MEDS ORDERED: MONT-40 PO (21:31)
--- NOTE | 2024-12-19 21:48 | RADIOLOGY REPORT ---
Exam: CT CT ABDOMEN PELVIS History: ABD PAIN Comparison Study: CT ABDOMEN PELVIS on DOS: 09/11/19 Technique: Multidetector spiral CT of the abdomen was performed from lung bases to pubic symphysis. Imaging was performed without IV contrast. Axial, coronal and sagittal multiplanar reformats were obtained from the axial data set by the technologist. Radiation Dose : 1. Abdomen/Pelvis: CTDIvol 20 mGy, DLP 954 mGy*cm. Findings: Evaluation of solid organs is limited due to lack of intravenous contrast use. Lower Chest: Diffuse interstitial opacities with ground-glass attenuation and and centrilobular emphysema. Partially imaged cardiac leads with normal heart size. Liver: Multiple cystic appearing lesions without suspicious features. Gallbladder and Biliary Tree: Cholecystectomy change. Pancreas: Moderate atrophy. Spleen: Unremarkable. Adrenal Glands: Unremarkable. Kidneys/Ureters: No urinary stone or obstruction. Bladder: Distended without evident wall thickening or filling defect. Pelvic Organs: Unremarkable Bowel: No evidence of wall thickening or obstruction. Gas and fluid contents within a majority of mid to distal small bowel and proximal and mid large bowel loops with multiple short air-fluid levels. No evidence of appendicitis. Rectosigmoid anastomotic sutures without evident complication. Vasculature: Moderate atherosclerosis. Lymphadenopathy: No obvious adenopathy. Peritoneum: No ascites, free air, or fluid collection. Abdominal Wall: Ventral postsurgical change. Infraumbilical and right lower quadrant paramidline hernias contains uncomplicated small bowel loops. Musculoskeletal: No acute findings. Mild degenerative changes. IMPRESSION: 1. CT appearance of small and large bowel loops can be seen in the setting of enterocolitis. 2. No other acute abdominopelvic abnormality. 3. Small bowel containing infraumbilical hernias without evidence of complication. 4. Pulmonary emphysema with evidence of small airways disease. 5. Additional chronic and incidental findings above. Radiation optimization: All CT scans at this facility use at least one of these dose optimization techniques: automated exposure control mA and/or kV adjustment per patient size (includes targeted exams where dose is matched to clinical indication) or iterative reconstruction.
[2024-12-19] MEDS: metroNIDAZOLE-Flagyl 500mg/NS 100 ML IV STA (22:14)
[2024-12-19] MEDS ORDERED: ondansetron/PF 4mg/2ml inj IV PRN (22:20)
[2024-12-19] MEDS ORDERED: magnesium hydroxide 30ml (MOM) UD suspension PO PRN (22:20)
[2024-12-19] MEDS ORDERED: potassium Cl 20 mEq SR tablet PO PRN (22:20)
[2024-12-19] MEDS ORDERED: mag hydrox/Alum hydrox/simeth 30ml oral suspension PO PRN (22:20)
[2024-12-19] MEDS ORDERED: magnesium sulf-water 2g/50mL 50 ML IV PRN (22:20)
[2024-12-19] MEDS ORDERED: magnesium sulf-water 4G/100mL 100 ML IV PRN (22:20)
[2024-12-19] MEDS ORDERED: magnesium Cl slow-release 64mg tablet PO PRN (22:20)
[2024-12-19] MEDS ORDERED: potassium Cl 40MEQ/1/2NS 520ml 520 ML IV PRN (22:20)
--- NOTE | 2024-12-19 22:50 | HISTORY AND PHYSICAL-Residence ---
History & Physical Providers to Resident Creating Document: AKIL CELAYA, RES ~ History of Present Illness Primary Medical Doctor: Dr. Chin [facility] Reason for Admit\Complaint: Diarrhea History of Present Illness 84-year-old female with history of AFib, hypertension, depression came to the ED with complaints of diarrhea. She states that she has had diarrhea for the past 10 days, 3-4 episodes on the 1st few days, the frequency gradually decreased and she had only 1 episode of diarrhea today. She states that the stool is watery in consistency and yellow. She states that she has mild diffuse abdominal pain once in a while. She denies nausea, vomiting, fever, chills. She states that she has generalized weakness, denies falls or dizziness. She states that she went to a reunion 3 days prior to the symptom onset and ate some salad. She states that she has decreased appetite and feels she has lost some weight but unable to say how much. She reports having less urine output, denies burning micturition, frequency, blood in urine. She denies recent use of antibiotics, blood in stool and sick contacts. She denies chest pain, shortness of breath, palpitations, swelling or pain in legs, confusion. Allergies: Coded Allergies: No Known Drug Allergies (Verified Allergy, Unknown, 12/19/24) Home Medications Home Medications Active Lisinopril* (Lisinopril) 40 Mg Tablet 1 Tab PO DAILY Toprol Xl (Metoprolol Succinate) 200 Mg Tab.sr.24h 1 Tab PO DAILY 30 Days Reported Amiodarone HCl* (Amiodarone HCl) 200 Mg Tablet 1 Tab PO DAILY Apresoline* (Hydralazine HCl) 25 Mg Tablet 1 Tab PO BID Montelukast Sodium 10 Mg Tablet 1 Tab PO DAILY Metoprolol Succinate 200 Mg Tab.sr.24h 1 Tab PO DAILY Biotin 5,000 Mcg Tab.rapdis 1 Tab PO DAILY 30 Days Levocetirizine Dihydrochloride 5 Mg Tablet 40 Mg PO DAILY Lasix (Furosemide) 20 Mg Tablet 1 Tab PO DAILY 30 Days Warfarin Sodium 4 Mg Tablet 1 Tab PO T 4 MG 4 TIMES PER WEEK: es, Th, Sat, Sun Calcium 500 + D Tablet (Calcium/Vitamin D) 1 Each Tablet 1 Tab PO BID 30 Days Fluoxetine HCl 20 Mg Capsule 1 Cap PO DAILY 30 Days Warfarin Sodium 3 Mg Tablet 1 Tablet PO MWTHFSATS 3 MG 3 TIMES PER WEEK Past Medical History Past Medical History AFib Hypertension Depression Past Surgical History Surgical History Comment Cholecystectomy Colon surgeries x 2 (colectomy w/revision for scar tissue) Left ankle fx repair w/pins and screws PPM Family History Family History: (CAD) Coronary arteriosclerosis MOTHER, , Age: 80, Cause: (CVA) Cerebrovascular accident FAMILY/OTHER No Family History of: (CABG) Coronary artery bypass grafting (CHF) Congestive heart failure (COPD) Chronic obstructive lung disease (Cancer) Malignant carcinoid tumor (DM Type 2) Diabetes mellitus type 2 (DM Type1) Diabetes mellitus type 1 (NH) Myocardial infarction (PVD) Peripheral vascular disease (TIA) Transient ischemic attack Alzheimer's disease Aortic aneurysm Asthma Cardiac arrest Hypercholesterolemia Past Social History Social History Comment She quit smoking 20 years ago, she used to smoke 1 pack a day for 40 years She drinks a glass of wine everyday She denies recreational drug use She lives alone but her kids come often to check up on her She uses a walker Smoking: Non-Smoker, Quit greater than 1 year Alcohol Use: Occasionally Drug Use: None Lives with: Alone Lives In: Home Occupation: retired ROS All Other Systems: Reviewed and Negative ROS Constitutional: Reports weight loss, No fever, chills, dizziness, weight gain Eyes: No pain, erythema, discharge, blurring of vision ENT: No sore throat, epistaxis, tinnitus Cardiovascular:No chest pain, palpitations, syncope, lower extremity edema, paroxysmal nocturnal dyspnea Respiratory: No Shortness of breath and cough, No hemoptysis. Gastrointestinal: Reports diarrhea and occasional, mild, diffuse Abdominal pain, Reports decreased appetite, No vomiting,nausea,constipation, No hematemesis or melena. Musculoskeletal: No Swelling, pain in bilateral lower legs. Integumentary: No change in skin, hair, nails. No swelling, bruising, abrasions Neurologic: No weakness,No headache, neck pain, numbness or tingling of the extremities, Psychiatric: No delusions, depression, loss of interest in normal activity or change in sleep pattern, hallucinations, suicidal ideations Endocrine: Reports weakness. No polydipsia, polyuria, heat or cold intolerance, sweating, dry skin Hematological: No bleeding, petechiae, bruising Allergies: No asthma or urticaria Exam Vitals: Vital Signs Date Time Temp Pulse Resp B/P (MAP) Pulse Ox O2 Delivery O2 Flow Rate FiO2 12/19/24 20:38 60 16 107/45 (65) 97 12/19/24 17:27 97.0 0 General: Awake , alert, and oriented x4, resting comfortably in the bed, in no acute distress HEENT: Atraumatic, normocephalic, EOMI, anicteric sclera ; pink conjunctiva, mucous membranes dry Neck: Trachea midline. Supple, full range of motion, no JVD Cardiac: Regular rhythm, regular rate with no murmurs all over the precordium. Respiratory: Equal breath sounds bilaterally, no tachypnea, no wheezing ,rub or rales, Chest wall is symmetric and without deformity. Gastrointestinal: Abdomen symmetric, non-distended, soft, non-tender, hyperactive bowel sounds, no hepatosplenomegaly Musculoskeletal: 8 cm Healed scar on left ankle, No pedal edema, no cyanosis Neurological: Speech is clear, alert, and oriented x 4. No motor or sensory deficit, deep tendon reflexes normal, cerebellar intact. Cranial nerves II-XII intact. Skin: Warm and dry Diagnostic Data Last Recorded Lab Results: 12/19/24 1714 12/19/24 1714 Advance Care Planning Advanced Care plannin - 30 Minutes (DNR) Additional Plan 84-year-old female with history of AFib, hypertension, depression came to the ED with complaints of diarrhea for the past 10 days. Diarrhea Differential diagnosis are bacterial gastroenteritis vs viral gastroenteritis vs C diff vs colitis Blood pressure is on the soft side- 106/74 WBC is normal, H&H is normal Potassium is low-3, started potassium replacement protocol Sodium is normal Chloride is slightly elevated-111 bicarbonate is low-19.8 Inflammatory markers are normal- Procalcitonin is < 0.05, lactic acid is 0.3 Chest x-ray shows no cardiopulmonary abnormality Abdomen/pelvis CT shows small and large bowel loops in the setting of enterocolitis, small bowel containing infraumbilical hernias without evidence of complication and pulmonary emphysema with evidence of small airways disease. Plan: Follow up C diff toxin NS 2 bolus were given in the ED Started on NS 75 mL/hour Patient uses Lasix 20 mg at home, held Lasix due to dehydration Continue Strict Is&Os IV Flagyl 500 mg was given in the ER Started IV ciprofloxacin 400 mg q.24h and IV metronidazole 500 mg q.12h in the a.m. Follow up stool culture and stool occult blood, coagulation profile Monitor electrolytes Continue telemetry monitoring EMMA, most likely prerenal due to dehydration Vasomotor nephropathy Creatinine is elevated-3, baseline creatinine-1.4 BUN is elevated-62, BUN/Cr is elevated-20.7 Follow up urine lytes Started NS 75 mL/hour Held home medication Lasix 20 mg Continue strict I's and o's History of AFib with RVR History of Pacemaker placement Patient uses warfarin and amiodarone 200 mg at home We will continue amiodarone after med reconciliation Held home medication warfarin Warfarin pharmacy to dose INR is 7.1, patient is not actively bleeding Monitor coagulation profile Hypertension Patient is on lisinopril 40 mg, metoprolol succinate 200 mg, Lasix 20 mg at home, hydralazine 25 mg b.i.d. at home Blood pressure is on the soft side, held her home medications, we will plan to restart after stabilization Continue monitoring vitals Depression We will continue home medication fluoxetine after med reconciliation I spent a total of 18 minutes reviewing various resuscitative measures/ACP with the patient. The patient decided to be DNR. Code status: DNR DVT prophylaxis: SCD GI prophylaxis: Pantoprazole 40 mg Diet/nutrition: Heart healthy diet Prognosis: Guarded Disposition: Continue medical management, follow up urine lytes, PT eval and DC plan Resident MD attestation: The patient note has been reviewed and supervised by senior residents PGY-2/ PGY-3. Patient was seen, examined and discussed with attending physician. Akil Celaya MD Internal Medicine resident, PGY-1 I saw and discussed the case with the resident team Agree with assessment and plan as documented Date of Service: Dec 19, 2024 Billing Provider: FAHAD HOBSON MD, PREETHI, RES Dec 19, 2024 22:50 FAHAD HOBSON MD Dec 20, 2024 08:41
--- NOTE | 2024-12-19 23:04 | RADIOLOGY REPORT ---
CHEST RADIOGRAPH Indication: valvular heart disease Technique: 1 view Comparison: DI CHEST,SINGLE VIEW on DOS: 09/13/23, CHEST,SINGLE VIEW on DOS: 10/28/21 FINDINGS: Patient is rotated. Lines and Tubes: Unchanged left implanted cardiac device positioning. Lungs/Pleura: Similar diffuse bilateral interstitial edema. No focal consolidation, pleural effusion or pneumothorax. Cardiomediastinum: Unchanged, mildly enlarged heart size. Aortic valve replacement. Other: No acute osseous abnormality. IMPRESSION: 1. No acute cardiopulmonary abnormality or significant change from prior exam..
[2024-12-19] MEDS: normal saline 1000ml 1,000 ML IV SCH (23:25)
[2024-12-19 23:37] LABS: LEUKOCYTE ESTERASE ,URINE NEGATIVE (Neg); NITRITES, URINE NEGATIVE (Neg); OCCULT BLOOD,URINE NEGATIVE (Neg)
[2024-12-19 23:38] LABS: CREATININE,URINE RANDOM 50.0 MG/DL
[2024-12-19 23:43] LABS: OSMOLALITY UA 368.0 MOSM/K (50-1400)
[2024-12-19 23:45] LABS: UA COLLECTION TYPE NON-SPECIFIED
[2024-12-20] VITALS (9 sets, daily range): BP systolic 85–125; BP diastolic 40–58; PULSE 60–91; RESP 13–17; TEMP 96.5–97.8; O2SAT 92–100
[2024-12-20] MEDS ORDERED: metroNIDAZOLE-Flagyl 500mg/NS 100 ML IV SCH
[2024-12-20 00:25] LABS: APTT 40 SECONDS (22-32)
[2024-12-20 00:32] LABS: CREATININE 2.57 MG/DL (0.40-0.90); TOTAL CARBON DIOXIDE 20.7 MMOL/L (24-32); eCRCL 13 ML/MIN; eGFR 18 ML/MIN
[2024-12-20 00:33] LABS: PHOSPHORUS 1.9 MG/DL (2.3-4.5); PRO BRAIN NATRIURETIC PEPTIDE 575 PG/ML (0-450)
[2024-12-20 00:35] LABS: INR 7.1 INR
[2024-12-20] MEDS: potassium Cl 20 mEq SR tablet PO PRN (01:27)
[2024-12-20] MEDS ORDERED: WARF-65 PO ×3 (01:46)
[2024-12-20] MEDS ORDERED: CALC-937 PO (01:46)
[2024-12-20 01:55] LABS: OCCULT BLOOD STOOL NEGATIVE (Neg)
[2024-12-20 06:32] LABS: MEAN PLATELET VOLUME 9.3 FL (7.4-10.4); RED CELL DISTRIBUTION WIDTH 14.1 % (11.5-14.5)
[2024-12-20 06:53] LABS: CHOL/HDL RATIO 2.0 (0.00-4.99); CREATININE 2.20 MG/DL (0.40-0.90); LDL CHOLESTEROL 29 MG/DL (50-100); TOTAL CARBON DIOXIDE 18.8 MMOL/L (24-32); eCRCL 15 ML/MIN; eGFR 21 ML/MIN
[2024-12-20] MEDS: docusate sod 100mg capsule PO SCH (08:00)
[2024-12-20] MEDS ORDERED: LEVOCETIRIZINE DIHYDROCHLORIDE PO SCH (08:00)
[2024-12-20] MEDS ORDERED: ciprofloxacin/D5W 200mg/100mL 100 ML IV SCH (08:00)
[2024-12-20] MEDS: K and/or MAG REPLACEMENT MC SCH (08:00)
[2024-12-20] MEDS: ciprofloxacin/D5W 200mg/100mL 100 ML IV SCH (08:48)
[2024-12-20] MEDS: lactobacillus rhamnosus 10,000 MMU CELLS/CAPSULE PO SCH (08:51)
[2024-12-20] MEDS: pantoprazole 40mg Tablet.DR PO SCH (08:51)
[2024-12-20] MEDS: calcium carbonate/vitamin D3 tablet PO SCH (08:52)
[2024-12-20] MEDS: ringers solution, lacted 1,000 ML IV SCH (09:46)
[2024-12-20] MEDS ORDERED: hydrALAZINE 20mg/ml inj. IV PRN (10:00)
--- NOTE | 2024-12-20 10:00 | PROGRESS NOTE ---
Daily Progress Note Providers to CC ~ Antibiotic Timeout Antibiotic Ordered?: Yes Subjective No acute events overnight. Patient examined at bedside. No new complaints, not in acute distress. Patient denies chest pain, sob, palpitations, abdominal pain, n/v. Patient still has liquid diarrhea. Vss, labs notable for downtrending Cr on IVF and NAGMA with bicarb at 18.8mmol/L, Cl 118mmol/L. NS discontinued, oral bicarb and LR started. Objective Vital Signs Date Time Temp Pulse Resp B/P (MAP) Pulse Ox O2 Delivery O2 Flow Rate FiO2 12/20/24 06:30 60 12/20/24 01:00 97.3 13 111/44 (66) 98 Room Air 0.0 12/20/24 01:00 98 Result Diagram: 12/20/2460212/20/24 06 Physical Exam General: Generalized weakness, A&Ox 3, NAD HEENT: Normocephalic, PERRLA Neck: Supple, trachea midline, no JVD Chest: Clear to auscultation bilaterally Cardiovascular: RRR, S1&S2 GI: Soft and nontender Extremities: No cyanosis/clubbing/or edema PORT TRAFFIC MANAGER: CN II-XII intact, no focal deficits Musculoskeletal: No paraspinal muscle tenderness, no muscle spasm Skin: Warm and intact Coagulation Studies Laboratory Tests Test 12/19/24 23:30 Prothrombin Time 60.2 SECONDS (9.0-12.0) H INR International Normalized Ratio 7.1 INR *H Activated Partial Thromboplast Time 40 SECONDS (22-32) H Coagulation Comments Problem\Assessment\Plan 84-year-old female with history of AFib, hypertension, depression came to the ED with complaints of diarrhea for the past 10 days. Assessment & Plan Enterocolitis Metabolic acidosis, NAGMA Hypokalemia 2/2 GI loss Prerenal EMMA 2/2 dehydration/vasomotor nephropathy CT suggests enterocolitis, urine K <20 suggesting GI loss -hyperchloremia, bicarbonate 18, continue abx, NS discontinued, start LR, replace K, follow stool culture Afib RVR, CVR Pacemaker status HTN Orthostatic hypotension -currently sinus in 60s, INR 7.1, continue home warfarin pharmacy to dose and amiodarone -hypotensive, home antihypertensives held, start prn hydralazine MDD -continue home fluoxetine Code status: DNR DVT/VTE prophylaxis: warfarin, pharmacy to dose Date of Service: Dec 20, 2024 Billing Provider: LAURY REEVES Common Visit Codes: [id number] INP/OBS CARE(HIGH) LAURY REEVES Dec 20, 2024 10:00
[2024-12-20] MEDS: metroNIDAZOLE-Flagyl 250mg/NS 50 ML IV SCH (10:14)
[2024-12-21 02:00] VITALS: BP 119/57; PULSE 60; RESP 16; TEMP 96.8; O2SAT 93
[2024-12-21 06:00] VITALS: BP 96/48; PULSE 70; RESP 17; TEMP 97.8; O2SAT 96
[2024-12-21 06:34] LABS: MEAN PLATELET VOLUME 9.3 FL (7.4-10.4); RED CELL DISTRIBUTION WIDTH 14.3 % (11.5-14.5)
[2024-12-21 06:50] LABS: CREATININE 1.44 MG/DL (0.40-0.90); TOTAL CARBON DIOXIDE 23.5 MMOL/L (24-32); eCRCL 23 ML/MIN; eGFR 35 ML/MIN
[2024-12-21 07:28] LABS: INR 5.4 INR
[2024-12-21 09:00] VITALS: RESP 17; O2SAT 96
[2024-12-21 11:00] VITALS: BP 116/53; PULSE 60; RESP 14; TEMP 96.9; O2SAT 95
[2024-12-21] MEDS ORDERED: METR-159 PO (11:06)
[2024-12-21] MEDS ORDERED: CIPR-458 PO (11:06)
--- NOTE | 2024-12-21 17:27 | DISCHARGE SUMMARY ---
Discharge Summary Providers to CC ~ Discharge Summary Admission Diagnosis: Enterocolitis, metabolic acidosis Hospital Course DATE OF ADMISSION: 12/19/24 DATE OF DISCHARGE: 12/21/24 Discharge Diagnosis\\Comment: Enterocolitis Metabolic acidosis, NAGMA Hyperchloremic acidosis Hypokalemia 2/2 GI loss Prerenal EMMA 2/2 dehydration/vasomotor nephropathy Afib RVR, CVR Pacemaker status HTN Orthostatic hypotension MDD Operations\\Procedures: None Consultants: None Complications: None Condition on DC: Stable New Medications: Ciprofloxacin HCl (Ciprofloxacin HCl) 500 Mg Tab 1 TAB PO BID for 7 Days, #14 TAB Metronidazole* (Flagyl*) 500 Mg Tablet 1 TAB PO Q8H for 5 Days, #15 TAB Continued Medications: Amiodarone HCl* (Amiodarone HCl*) 200 Mg Tablet 1 TAB PO DAILY Biotin (Biotin) 5,000 Mcg Tab.rapdis 1 TAB PO DAILY for 30 Days, #30 TAB 0 Refills Calcium Carbonate/Vitamin D3 (Calcium With Vit D Tablet) 600 Mg Calcium-5 Mcg (200 Unit) Tablet 1 EACH PO DAILY, TAB Fluoxetine HCl (Fluoxetine HCl) 20 Mg Capsule 1 CAP PO DAILY for 30 Days, #30 CAP 0 Refills Levocetirizine Dihydrochloride (Levocetirizine Dihydrochloride) 5 Mg Tablet 40 MG PO DAILY Montelukast Sodium (Montelukast Sodium) 10 Mg Tablet 1 TAB PO DAILY Discontinued Medications: Furosemide (Lasix) 20 Mg Tablet 1 TAB PO DAILY for 30 Days, #30 TAB 0 Refills Hydralazine Hcl* (Apresoline*) 25 Mg Tablet 1 TAB PO BID Lisinopril* (Lisinopril*) 40 Mg Tablet 1 TAB PO DAILY, #30 TAB Metoprolol Succinate (Metoprolol Succinate) 200 Mg Tab.sr.24h 1 TAB PO DAILY Warfarin Sodium (Warfarin Sodium) 2 Mg Tablet 1 TAB PO MTTF for 30 Days, #30 TAB 0 Refills Warfarin Sodium (Warfarin Sodium) 2 Mg Tablet 1 TAB PO SS for 30 Days, #30 TAB 0 Refills Warfarin Sodium (Warfarin Sodium) 2 Mg Tablet 0.5 TAB PO Wednesds for 30 Days, #30 TAB 0 Refills Discharge Summary: History of Present Illness From H&P: "84-year-old female with history of AFib, hypertension, depression came to the ED with complaints of diarrhea. She states that she has had diarrhea for the past 10 days, 3-4 episodes on the 1st few days, the frequency gradually decreased and she had only 1 episode of diarrhea today. She states that the stool is watery in consistency and yellow. She states that she has mild diffuse abdominal pain once in a while. She denies nausea, vomiting, fever, chills. She states that she has generalized weakness, denies falls or dizziness. She states that she went to a reunion 3 days prior to the symptom onset and ate some salad. She states that she has decreased appetite and feels she has lost some weight but unable to say how much. She reports having less urine output, denies burning micturition, frequency, blood in urine. She denies recent use of antibiotics, blood in stool and sick contacts. She denies chest pain, shortness of breath, palpitations, swelling or pain in legs, confusion." Hospital Course Findings were notable for CT revealing enterocolitis, urine potassium <20 suggesting GI loss, hypokalemia of 3.0mmol/L, hyperchloremia, bicarbonate 19 mmol/L, severe renal insufficiency. Patient was treated with intravenous lactated ringer, empirical antibiotics, electrolyte replacement. With the start of treatment, diarrhea has subsided and stool started forming. Due to supratherapeutic INR, home warfarin was held. Patient did not experience further complications throughout the entire hospital stay made a good recovery. Patient was seen and examined on the day of discharge. On day of discharge, vss and labs notable for resolving acute kidney injury. Preliminary stool culture remains negative until the day of discharge. Telemetry remained sinus in 60s. All labs, diagnostic workups, discharge plan discussed with patient in details during visit before discharge. All questions and concerns answered to the best of my professional knowledge. Patient is to be discharged with HH and to follow-up with PCP and your lab specialist within 1-2 weeks. Patient is instructed to follow-up for PT/INR check to resume warfarin when appropriate. Physical Exam General: Generalized weakness, A&Ox 3, NAD HEENT: Normocephalic, PERRLA Neck: Supple, trachea midline, no JVD Chest: Clear to auscultation bilaterally Cardiovascular: RRR, S1&S2 GI: Soft and nontender Extremities: No cyanosis/clubbing/or edema PRODUCTION PAINTER: CN II-XII intact, no focal deficits Musculoskeletal: No paraspinal muscle tenderness, no muscle spasm Skin: Warm and intact *Problems/Diagnosis: (1) Enterocolitis Status: Acute (2) EMMA (acute kidney injury) Status: Acute Total Time Spent on D/C: > 30 Minutes Date of Service: Dec 21, 2024 Billing Provider: LAURY REEVES Common Visit Codes: 42563-FDO/OBS DISCH DAY >30min LAURY REEVES Dec 21, 2024 17:27
== END 2024-12-21 16:00 | disposition home or self-care (01) | DRG 391 ==
LOC: ER 16:50 → ED HOLD 22:16 → UNDOADMIN 22:23 → EDBEDREQ 23:55 → PCU 3S 12-20 00:45 → ED HOLD 12-20 00:45 → PCU 3S 12-20 20:51
PROVIDERS: ADMIT Internal Medicine; ATTEND Nurse Practitioner Family
DX: A08.4 Viral intestinal infection, unspecified (principal); N17.0 Acute kidney failure with tubular necrosis; E87.20 Acidosis, unspecified; I48.91 Unspecified atrial fibrillation; F32.A Depression, unspecified; Z66 Do not resuscitate; I10 Essential (primary) hypertension; I95.1 Orthostatic hypotension; E87.6 Hypokalemia; E86.0 Dehydration; E87.8 Other disorders of electrolyte and fluid balance, not elsewhere classified; R79.1 Abnormal coagulation profile; J43.9 Emphysema, unspecified; E86.1 Hypovolemia; Z95.0 Presence of cardiac pacemaker; Z79.01 Long term (current) use of anticoagulants; Z82.3 Family history of stroke; Z82.49 Family history of ischemic heart disease and other diseases of the circulatory system; Z90.49 Acquired absence of other specified parts of digestive tract; Z87.891 Personal history of nicotine dependence
CPT/HCPCS: 36415; 71045; 74176; 80048; 80053; 80061; 81003; 82272; 82570; 83036; 83605; 83690; 83735; 83880; 83935; 84100; 84133; 84145; 84300; 84443; 85025; 85610; 85730; 87040; 87045; 87046; 87081; 87207; 89055; 96361; 96365; 97116; 97161; 97530; 99291; G0378; J0744; J3490; J7030; J7120